=== PATIENT | male | born 1990 | race African-American/Black ===

== ENCOUNTER 2018-12-05 21:27 | Emergency (ER) | payer BC, SELFPAY ==
[2018-12-05] MEDS ORDERED: predniSONE 20 MG TAB ONE (21:52)
== END 2018-12-05 21:50 | disposition home or self-care (01) ==
LOC: NAV ERS 21:27
DX: J45.901 Unspecified asthma with (acute) exacerbation (principal); Z79.51 Long term (current) use of inhaled steroids
CPT/HCPCS: 99284; J7512